=== PATIENT | female | born 1980 | race Caucasian/White ===

== ENCOUNTER → 2018-02-05 | Day surgery (SDC) | payer OTHER ==
[~2018-02-05] MED LIST: MIDAZOLAM HCL 2 MG/2 ML VIAL ONE; PANTOPRAZOLE 40 MG 10ML VIAL ONE; PROPOFOL IV EMULSION 10 MG/ML 50 ML VIAL ONE
--- OUTSIDE RECORDS SUMMARY | 2018-02-05 11:38 | XMS REPORT | Clinical Summary ---
Author Author [employer] [facility] [employer] Address Unknown Phone Unavailable Care Team Providers [employer] Counsel[employer] Name Role Phone Juan Monzon MD PCP Allergies Active Allergy Reactions Severity Noted Date Comments Minocycline 06/09/2017 Vancomycin (Bulk) Hives, Itching Current Medications Prescription Sig. Disp. Refills Start End Date Status Date cephalexin (KEFLEX) 500 TAKE 2 CAPSULES BY MOUTH 0 05/10/20 06/09/20 Discontin MG capsule TWICE DAILY FOR 10 DAYS 17 17 ued omeprazole (PriLOSEC) 40 Take 40 mg by mouth once 3 05/07/20 Discontin MG capsule daily. 17 17 ued amoxicillin (AMOXIL) 500 Take 500 mg by mouth 3 06/17/20 Discontin MG capsule (three) times a day. 17 ued cephalexin (KEFLEX) 250 Take 1 capsule (250 mg 28 capsule 0 06/18/20 06/26/20 Discontin MG capsule total) by mouth 4 (four) 17 17 ued times a day for 7 days. traMADol (ULTRAM) 50 mg Take 1 tablet (50 mg 30 tablet 0 06/18/20 Discontin tablet total) by mouth every 6 17 17 ued (six) hours as needed for moderate pain for up to 30 days. Active Problems Problem Noted Date Cardiac pacemaker in situ 06/26/2017 Overview: Proper device function, no changes PM site and LINQ site are both healing well Syncope 06/10/2017 Last Assessment & Plan: No syncope since PM implant AV heart block 06/10/2017 Last Assessment & Plan: S/p dual chamber permanent PM implant (06/17/17) Encounters Date Type Specialty Care Team Description 09/01/2017 Office Visit Cardiology Guerrero Garcia V., Syncope, unspecified syncope type (Primary Dx); AV heart block; Cardiac pacemaker in situ 06/26/2017 Office Visit Cardiology Batsheva Mackey, Syncope, unspecified SPEECH LANGUAGE SPECIALIST syncope type (Primary Dx); AV heart block; Cardiac pacemaker in situ 06/17/2017 [facility] Cardiology Guerrero Garcia V., Syncope, unspecified - Encounter MD syncope type 06/18/2017 06/17/2017 Anesthesia Procedural Cardiology Suki, Karan, SHOT HOLE SHOOTER Event 06/17/2017 Procedure Pass Procedural Cardiology 06/17/2017 Surgery Procedural Cardiology Guerrero Garcia V., Ep ppi implant insertion bi vent av seq [[id number] (CPT )] 06/16/2017 Lab Lab Guerrero Garcia V., Syncope, unspecified MD syncope type 06/16/2017 Hospital Procedural Cardiology Guerrero Garcia V., AV heart block Encounter MD 06/11/2017 Orders Only Cardiology Meenakshi Tomas MA Syncope, unspecified syncope type (Primary Dx) 06/11/2017 Orders Only Cardiology Meenakshi Tomas MA Syncope, unspecified syncope type (Primary Dx) 06/09/2017 Office Visit Cardiology Guerrero Garcia V., Syncope, unspecified MD syncope type (Primary Dx); AV heart block 05/23/2017 Hospital Procedural Cardiology Moisés Bhatti MD PhD Palpitations Encounter 05/23/2017 Ancillary Procedural Cardiology Moisés Bhatti MD PhD Palpitations Orders 04/23/2017 Hospital Procedural Cardiology Juan M Monzon MD Palpitations Encounter 04/23/2017 Ancillary Procedural Cardiology Juan M Monzon MD Palpitations Orders 03/27/2017 Ancillary Procedural Cardiology Juan M Monzon MD Palpitations Orders 03/23/2017 Hospital Procedural Cardiology Juan M Monzon MD Palpitations Encounter 02/24/2017 Ancillary Procedural Cardiology Juan M Monzon MD Heart palpitations Orders 02/21/2017 Hospital Procedural Cardiology Juan M Monzon MD Heart palpitations Encounter after 02/04/2017 Family History Medical History Relation Name Comments Hypertension Father Hypertension Mother Lupus Mother Relation Name Status Comments Father Mother Social History Tobacco Use Types Packs/Day Years Used Date Never Smoker Alcohol Use Drinks/Week oz/Week Comments Yes social Sex Assigned at Date Recorded Not on file Last Filed Vital Signs Vital Sign Reading Time Taken Blood Pressure 138/75 09/01/2017 2:31 PM FAMILY SPECIALIST Pulse 70 09/01/2017 2:31 PM FAMILY SPECIALIST Temperature 36.9 C (98.5 F) 06/18/2017 7:17 AM CDT Respiratory Rate 16 06/26/2017 9:09 AM CDT Oxygen Saturation 97% 06/18/2017 7:17 AM CDT Inhaled Oxygen - - Concentration Weight 74.8 kg (165 lb) 09/01/2017 2:31 PM FAMILY SPECIALIST Height 175.3 cm (5' 9") 09/01/2017 2:31 PM FAMILY SPECIALIST Body Mass Index 24.37 09/01/2017 2:31 PM FAMILY SPECIALIST Plan of Treatment Health Maintenance Due Date Last Done Comments CERVICAL CANCER SCREENING 2001 INFLUENZA VACCINE 04/22/2018 Implants Implanted Type Area Instant Print Operator Device Expiration Model / Identifier Date Serial / Lot Pacemaker 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 [id number] Leads or / Implanted: Qty: 1 on 06/17/2017 by Electrodes [id number] Guerrero Garcia MD or Jessica grant Lead, Bipolar Active Fixation Cardiac N/A: N/A [employer] [facility] 2018 [id number] / Atrial Steroid Eluting 45 Cm [employer] [id number] Capsure Fix Novus System - Leads or / [id number] - [id number] Electrodes [id number] Implanted: Qty: 1 on 06/17/2017 by Guerrero Rees MD Accessorie s Pacemaker Pacemaker Procedures Procedure Name Priority Date/Time Associated Diagnosis Comments CV PACEMAKER DEFIB ILR Routine 09/01/2017 INTERROGATION 12:00 AM FAMILY SPECIALIST EP LOOP RECORDER REMOVAL Routine 06/17/2017 Syncope, unspecified Results for this 8:13 PM CDT syncope type procedure are in the results section. EP PPI IMPLANT INSERTION Routine 06/17/2017 Syncope, unspecified Results for this BI VENT AV SEQ 8:13 PM CDT syncope type procedure are in the results section. CV LOOP RECORDER MONITOR Routine 05/23/2017 Palpitations EVAL <30DAYS 12:52 PM CDT CV LOOP RECORDER MONITOR Routine 04/23/2017 Palpitations EVAL <30DAYS 10:02 AM CDT CV LOOP RECORDER MONITOR Routine 03/27/2017 Palpitations EVAL <30DAYS 9:40 AM CDT CV LOOP RECORDER MONITOR Routine 02/24/2017 Heart palpitations EVAL <30DAYS 10:37 AM CDT after 02/04/2017 Results * Measles (rubeola) antibody IgG (01/28/2018 12:14 PM) Component Value Ref Range Measles (rubeola) Ab, IgG Positive (A)Comment: Positive: Indicates current Negative or past infection. Specimen Performing Laboratory Serum [facility] DEPARTMENT OF PATHOLOGY AND GENOMIC MEDICINE [address] [place] [address] * Rubella Ab IgG (01/28/2018 12:14 PM) Component Value Ref Range Rubella IgG antibody Positive (A) Non-reactive Specimen Performing Laboratory Blood [facility] [address] [place] [address] * Mumps virus antibody, IgG (01/28/2018 12:14 PM) Component Value Ref Range Mumps Ab, IgG Positive (A)Comment: Positive: Indicates current Negative or past infection. Specimen Performing Laboratory Serum [facility] DEPARTMENT OF PATHOLOGY AND GENOMIC MEDICINE [address] [place] [address] * ECG 12 lead (09/01/2017 2:35 PM) Only the most recent of 4 results within the time period is included. Component Value Ref Range Ventricular rate 67 Atrial rate 67 ID interval 148 QRSD interval 82 QT interval 390 QTC interval 412 P axis 1 79 QRS axis 1 83 T wave axis 20 EKG impression Normal sinus rhythm-Nonspecific ST and T wave abnormality-Abnormal ECG-In automated comparison with ECG of 26-JUN-2017 08:19,-No significant change was found- Specimen Performing Laboratory [facility] [address] [address] [place] [address] * CV pacemaker defib or ilr interrogation (09/01/2017) * Estimated GFR (06/18/2017 3:14 AM) Only the most recent of 3 results within the time period is included. Component Value Ref Range GFR Non Af Amer >90 mL/min/1.73 m2 GFR Af Amer >90 mL/min/1.73 m2 Comment: Chronic kidney disease: <60 mL/min/1.73m2 Kidney failure: <15 mL/min/1.73m2 The estimated GFR is calculated from the IDMS-traceable Modification of Diet in Renal Disease Equation. The accuracy of the calculation is poor when the creatinine is normal. Calculated values >90 mL/min/1.73m2 are not reported. This equation has not been validated in children (<18 years), women, the elderly (>70 years), or ethnic groups other than Caucasians and Americans. Specimen Performing Laboratory Plasma specimen [facility] DEPARTMENT OF PATHOLOGY AND GENOMIC MEDICINE [address] [place] [address] * Prothrombin time with INR (06/18/2017 3:14 AM) Only the most recent of 2 results within the time period is included. Component Value Ref Range Prothrombin time 13.7 12.0 - 15.0 sec INR 1.0 Comment: The International Normalized Ratio (INR) is a therapeutic monitoring tool for patients who are stable on oral anticoagulant therapy. An INR of 2.0-3.0 is suggested for deep vein thrombosis/pulmonary embolism. Specimen Performing Laboratory Blood [facility] DEPARTMENT OF PATHOLOGY AND GENOMIC MEDICINE [address] [place] [address] * CBC with platelet and differential (06/18/2017 3:14 AM) Only the most recent of 2 results within the time period is included. Component Value Ref Range WBC 6.29 4.50 - 11.00 k/uL RBC 4.32 4.20 - 5.50 m/uL HGB 12.9 12.0 - 16.0 g/dL HCT 38.1 37.0 - 47.0 % MCV 88.2 82.0 - 100.0 fL MCH 29.9 27.0 - 34.0 pg MCHC 33.9 31.0 - 37.0 g/dL RDW - SD 41.0 37.0 - 55.0 fL MPV 9.1 8.8 - 13.2 fL Platelet count 191 150 - 400 k/uL Nucleated RBC 0.00 /100 WBC Neutrophils 72.3 (H) 39.0 - 69.0 % Lymphocytes 16.7 (L) 25.0 - 45.0 % Monocytes 8.4 0.0 - 10.0 % Eosinophils 1.9 0.0 - 5.0 % Basophils 0.5 0.0 - 1.0 % Immature granulocytes 0.2Comment: "Immature granulocytes" 0.0 - 1.0 % (promyelocytes, myelocytes, metamyelocytes) Specimen Performing Laboratory Blood [facility] DEPARTMENT OF PATHOLOGY AND GENOMIC MEDICINE [address] [place] [address] * Basic metabolic panel (06/18/2017 3:14 AM) Component Value Ref Range Sodium 139 135 - 148 mEq/L Potassium 4.0 3.5 - 5.0 mEq/L Chloride 105 98 - 112 mEq/L CO2 23 (L) 24 - 31 mEq/L Anion gap 11 7 - 15 mEq/L Comment: Starting from December , anion gap calculation no longer incorporates potassium. Please note the change. BUN 8 6 - 20 mg/dL Creatinine 0.7 0.5 - 0.9 mg/dL Glucose 102 (H) 65 - 99 mg/dL Calcium 7.1 (L) 8.3 - 10.2 mg/dL Specimen Performing Laboratory Plasma specimen [facility] DEPARTMENT OF PATHOLOGY AND GENOMIC MEDICINE [address] [place] [address] * XR Chest 1 Vw Portable (06/17/2017 8:55 PM) Specimen Performing Laboratory [facility] [address] [place] [address] Narrative EXAMINATION:XR CHEST 1 VW PORTABLE CLINICAL HISTORY:Pneumothorax COMPARISON:None IMPRESSION: No consolidations, effusions, or pneumothorax. Cardiomediastinal silhouette is within normal limits. Left-sided cardiac device is identified. No acute osseous abnormalities. [facility]-[id number] Procedure Note Interface, Radiology Results Incoming - 06/17/2017 9:09 PM CDT EXAMINATION: XR CHEST 1 VW PORTABLE CLINICAL HISTORY: Pneumothorax COMPARISON: None IMPRESSION: No consolidations, effusions, or pneumothorax. Cardiomediastinal silhouette is within normal limits. Left-sided cardiac device is identified. No acute osseous abnormalities. [facility]-[id number] * Cv electrophysiology procedure (06/17/2017 8:13 PM) Specimen Performing Laboratory [facility] [address] [place] [address] [facility] ELECTROPHYSIOLOGY PROCEDURE NOTE DUAL CHAMBER PACEMAKER INDICATIONS Paroxysmal AV block PROCEDURE: Time out was completed with verification of the correct patient identity, procedure to be performed, procedure site and implanted equipment. The patient was brought to the electrophysiology laboratory at the [facility]. Intravenous prophylactic antibiotics were administered prior to the procedure. After the site of implantation was prepped and drapped in the usual sterile fashion and after adequate anesthesia was given, the skin was infiltrated with 1% lidocaine and 1% bupivicaine 50/50 mixture. The skin was incised with a #10 scalpel. Blunt and electrosurgical dissection was carried out to the level of the prepectoral fascia with careful attention paid to hemostasis. A pocket to house the pulse generator was formed below the pectoralis muscle with blunt and electrosurgical dissection. The pocket was copiously irrigated with antibiotic containing normal saline and subsequently observed. Once adequate hemostasis was confirmed within the pocket, venous access was obtained. The subclavian vein was accessed via Seldinger technique. Two J tip 0.035 inch guide wires were introduced and their course throught the venous system was confirmed by their presence under fluoroscopy in the inferior vena. RIGHT VENTRICULAR (HIS) LEAD: A 6 Vincentian peel away sheath was brought to the field and placed into the venous system via over the wire technique. The right ventricular lead was placed via this sheath into the His bundle location with excellent His capture and completely normal QRS.Adequate sensing and threshold parameters were obtained. The lead was attached via active fixation. There was no evidence of diaphragmatic stimulation at 10 V output. The peel away sheath was removed and the lead collar was advanced to the pectoral muscle and sutured with Ethibondsuture. Tug testing of this lead confirmed stability of the lead and the length of the lead's slack was assesed as optimal with fluoroscopy. RIGHT ATRIAL LEAD: A 6 Vincentian peel away sheath was brought to the field and placed into the venous system via over the wire technique. The right atrial lead was placed via this sheath into the right atrial appendage location. Adequate sensing and threshold parameters were obtained. The lead was attached via active fixation. There was no evidence of diaphragmatic stimulation at 10 V output. The peel away sheath was removed and the lead collar was advanced to the pectoral muscle and sutured with Ethibond suture. Tug testing of this lead confirmed stability of the lead and the length of the lead's slack was assesed as optimal with fluoroscopy. The lead tips for all leads were cleaned and dried thoroughly. The leads were attached to the appropriate ports on the pulse generator. Tug testing was perfomed on all connections. The device and leads were placed within the pocket such that the coiled redundant leads were posterior to the pulse generator. The pulse generator was then sutured inserted in the subpectoral pocket. The pocket was closed with 2 layers of continuous suture using 2-0 Vicryl. Dermabond was applied to the wound followed by a pressure dressing. CONCLUSIONS Successful dual chamber pacemaker implant. LINQ: the old scar was infiltrated with lidocaine and the linQ was extracted, the wound was closed with 4-0 vicryl. * Partial thromboplastin time, activated (06/16/2017 4:05 PM) Component Value Ref Range PTT 27.5 23.0 - 36.0 sec Comment: PTT therapeutic range for unfractionated heparin is 61.0-112.0 seconds which corresponds to Anti-Xa 0.3-0.7 U/ml. Specimen Performing Laboratory Blood [facility] DEPARTMENT OF PATHOLOGY AND GENOMIC MEDICINE [address] [place] [address] * Type and screen (06/16/2017 4:05 PM) Component Value Ref Range ABO grouping B Rh type POS Antibody screen (gel) NEG Specimen Performing Laboratory Blood [facility] DEPARTMENT OF PATHOLOGY AND GENOMIC MEDICINE [address] [place] [address] * Comprehensive metabolic panel (06/16/2017 4:05 PM) Component Value Ref Range Sodium 139 135 - 148 mEq/L Potassium 4.0 3.5 - 5.0 mEq/L Chloride 102 98 - 112 mEq/L CO2 26 24 - 31 mEq/L Anion gap 11 7 - 15 mEq/L Comment: Starting from December , anion gap calculation no longer incorporates potassium. Please note the change. BUN 10 6 - 20 mg/dL Creatinine 0.8 0.5 - 0.9 mg/dL Glucose 93 65 - 99 mg/dL Calcium 9.6 8.3 - 10.2 mg/dL Protein 7.7 6.3 - 8.3 g/dL Comment: 4.6-7.0 g/dL 1 week 4.4-7.6 g/dL 7 months-1year 5.1-7.3 g/dL 1-2 years 5.6-7.5 g/dL >3 years 6.0-8.0 g/dL 18-150 6.3-8.3 g/dL Albumin 4.0 3.5 - 5.0 g/dL A/G ratio 1.1 0.7 - 3.8 Alkaline phosphatase 68 35 - 104 U/L AST 21 10 - 35 U/L ALT 17 5 - 50 U/L Total bilirubin 0.6 0.0 - 1.2 mg/dL Specimen Performing Laboratory Plasma specimen [facility] DEPARTMENT OF PATHOLOGY AND GENOMIC MEDICINE [address] [place] [address] * Cardiac mri rv dysplasia eval w contrast (06/16/2017 3:55 PM) Specimen Performing Laboratory [facility] [address] [place] [address] [facility] CMR Report Name:BERNARDA MCCLELLAND :1980 Scan Date: 2017-06-16 14:43:45 Signed by Yasmany Hernandez M.D. (uid:34) 17:29:25. SUMMARY 1.Normal cardiac chamber sizes. NO intracardiac thrombus or mass. 2.Normal LV systolic function without regional wall motion abnormalities ( LVEF 67%). Normal RV systolic function without regional wall motion abnormalities (RVEF 58%). There are no major or minor 2010 Task Force imaging criteria* for arrhythmogenic right ventricular cardiomyopathy/dysplasia 3.NO myocardial infarction or scarring. 4.NO significant valvular abnormalities. 5.The thoracic aorta is of normal caliber without stenosis, aneurysm, or dissection. Normal pulmonary venous anatomy. 6. Other: Breast implants FINAL IMPRESSION: ESSENTIALLY NORMAL CMR EXAMINATION. CORE EXAM MEASUREMENTS --------- VOLUMETRIC ANALYSIS . . || | LV| Reference| RV| Reference | +------+-------+-------+ +-------+ + | EDV| ml| 156.5 |(119-185) | 184.5 |(117-189) | | ESV| ml|51.1 |(32-69) |76.7 |(32-82) | | CO | L/min |6.32 ||6.47 | | | MASS | g |92.4 |(90-148)| | | | SV | ml| 105.4 |(77-125)| 107.8 |(73-119)| | EF | % | 67.35 |(57-75) | 58.43 |(51-75) | '------+-------+-------+ +-------+ ' HEART RATE:60 LV DIMENSIONS WALL THICKNESS - ANTEROSEPTAL:0.4 cm WALL THICKNESS - INFEROLATERAL:0.6 cm LV JAIME:4.8 cm LV ESD:3.1 cm LA DIMENSIONS (LV SYSTOLE) DIAMETER:2.9 cm AREA - 2 CHAMBER:21 cm^2 LENGTH - 2 CHAMBER:5.3 cm AREA - 4 CHAMBER:22 cm^2 LENGTH - 4 CHAMBER:5.4 cm VOLUME:74.09 ml AORTIC ROOT DIMENSIONS DIAMETER - ANNULUS:2.4 cm DIAMETER - SINUS OF VALSALVA:3 cm DIAMETER - SINOTUBULAR JUNCTION:2.8 cm AORTIC ROOT SIZE:Normal CONDENSED SUMMARY --------- LV:Normal Wall Thickness. Cavity Size is Normal. No Mass/Thrombus. RV:Normal Wall Thickness. Contractility is Normal. Cavity Size is Normal. No Mass/Thrombus. No Pacemaker/Defibrillator Wire. IVS:Normal Interventricular Septum. LA:Cavity Size is Normal. No Mass/Thrombus. IAS:Normal Interatrial Septum. RA:Cavity Size is Normal. No Mass/Thrombus. No Additional Findings. No Pacemaker/Defibrillator Wire. PER:Normal Pericardium. No Effusion. No Diastolic Collapse. PE:No Pleural Effusion. AV:Trileaflet. No Aortic Regurgitation. No Aortic Stenosis. TV:Normal Leaflets. No Tricuspid Regurgitation. No Tricuspid Stenosis. MV:Normal Leaflets. No Mitral Regurgitation. No Mitral Stenosis. PV:Normal Leaflets. No Pulmonic Regurgitation. No Pulmonic Stenosis. 17 SEGMENT --------- . . | Segments | Wall Motion| Hyperenhancement | Stress Perfusion | Interpretation | + + + + +----- + | Base Anterior| Normal/Hyper | None | || | Base Anteroseptal| Normal/Hyper | None | || | Base Inferoseptal| Normal/Hyper | None | || | Base Inferior| Normal/Hyper | None | || | Base Inferolateral | Normal/Hyper | None | || | Base Anterolateral | Normal/Hyper | None | || | Mid Anterior | Normal/Hyper | None | || | Mid Anteroseptal | Normal/Hyper | None | || | Mid Inferoseptal | Normal/Hyper | None | || | Mid Inferior | Normal/Hyper | None | || | Mid Inferolateral| Normal/Hyper | None | || | Mid Anterolateral| Normal/Hyper | None | || | Apical Anterior| Normal/Hyper | None | || | Apical Septal| Normal/Hyper | None | || | Apical Inferior| Normal/Hyper | None | || | Apical Lateral | Normal/Hyper | None | || | [place] | Normal/Hyper | None ||| + + + + +----- + | RV Segments| Wall Motion| Hyperenhancement | Stress Perfusion | Interpretation | + + + + +----- + | RV Basal Anterior| Normal/Hyper | None | || | RV Basal Inferior| Normal/Hyper | None | || | RV Mid | Normal/Hyper | None | || | RV Apical| Normal/Hyper | None | || ' + + + +----- ' FINDINGS INFARCT/SCAR SIZE:0 % VASCULAR SCAN INFO GENERAL --------- SEDATION SEDATION USED?:No CONTRAST AGENT TYPE:Dotarem LOT NUMBER:[id number] EXPIRATION DATE:2019-05-23 00:00:00 VOLUME ADMINISTERED:23 ml DOSAGE FOR 0.5M:0.15 mmol/kg SERUM CREATININE:0.8 sCr GFR:86.26 ml/min/1.73m^2 FEMALE:Yes OR BLACK:No CREATININE DATE:2017-06-16 00:00:00 LAB RESULT HEMATOCRIT LEVEL:42 % HEMATOCRIT DATE:2017-06-16 00:00:00 VITALS HEIGHT:69 in HEIGHT:175.26 cm BODY WEIGHT:170 lbs BODY WEIGHT:77.11 kgs BSA::1.93 m^2 SYSTOLIC BP:118 mmHg DIASTOLIC BP:78 mmHg HEART RATE:86 BPM HEART RHYTHM:Sinus Rhythm PULSE SEQUENCE PULSE SEQUENCES:Single-Shot SSFP, IR GRE - Segmented, IR GRE - Single Shot, IR SSFP - Single Shot, Single Shot BB SADIQ, SSFP Cine, Phase Contrast Velocity Mapping, 3D MRA w and w/o contrast SETUP TYPE:Clinical INPATIENT:No LOCATION:[facility] INCOMPLETE SCAN:No REASON(S) FOR SCAN:RV Dysplasia Evaluation REFERRING PHYSICIAN:Guerrero Garcia MD ATTENDING PHYSICIAN:Yasmany Hernandez MD TECHNICIANS:Jaden Ramsay, RT ASSISTANTS:1) Cristine Duong 2) Divya RALPH 3) Leo Mcdaniels --------- Patient Account [id number] CPT Codes 85869, [ , ]12585, [ , ]68898 ICD10 Codes D86.9, [ , ]R93.1, [ , ]I45.89 Procedure Note Interface, Radiology Results In 06/16/2017 5:29 PM CDT [facility] CMR Report Name: BERNARDA MCCLELLAND: 1980 Scan Date: 2017-06-16 14:43:45 Signed by Yasmany Hernandez M.D. (uid:34) 17:29:25. SUMMARY 1. Normal cardiac chamber sizes. NO intracardiac thrombus or mass. 2. Normal LV systolic function without regional wall motion abnormalities ( LVEF 67%). Normal RV systolic function without regional wall motion abnormalities (RVEF 58%). There are no major or minor 2010 Task Force imaging criteria* for arrhythmogenic right ventricular cardiomyopathy/dysplasia 3. NO myocardial infarction or scarring. 4. NO significant valvular abnormalities. 5. The thoracic aorta is of normal caliber without stenosis, aneurysm, or dissection. Normal pulmonary venous anatomy. 6. Other: Breast implants FINAL IMPRESSION: ESSENTIALLY NORMAL CMR EXAMINATION. CORE EXAM MEASUREMENTS --------- VOLUMETRIC ANALYSIS . . | | | LV | Reference | RV | Reference | +------+-------+-------+ +-------+ + | EDV | ml | 156.5 | (119-185) | 184.5 | (117-189) | | ESV | ml | 51.1 | (32-69) | 76.7 | (32-82) | | CO | L/min | 6.32 | | 6.47 | | | MASS | g | 92.4 | (90-148) | | | | SV | ml | 105.4 | (77-125) | 107.8 | (73-119) | | EF | % | 67.35 | (57-75) | 58.43 | (51-75) | '------+-------+-------+ +-------+ ' HEART RATE: 60 LV DIMENSIONS WALL THICKNESS - ANTEROSEPTAL: 0.4 cm WALL THICKNESS - INFEROLATERAL: 0.6 cm LV JAIME: 4.8 cm LV ESD: 3.1 cm LA DIMENSIONS (LV SYSTOLE) DIAMETER: 2.9 cm AREA - 2 CHAMBER: 21 cm^2 LENGTH - 2 CHAMBER: 5.3 cm AREA - 4 CHAMBER: 22 cm^2 LENGTH - 4 CHAMBER: 5.4 cm VOLUME: 74.09 ml AORTIC ROOT DIMENSIONS DIAMETER - ANNULUS: 2.4 cm DIAMETER - SINUS OF VALSALVA: 3 cm DIAMETER - SINOTUBULAR JUNCTION: 2.8 cm AORTIC ROOT SIZE: Normal CONDENSED SUMMARY --------- LV:Normal Wall Thickness. Cavity Size is Normal. No Mass/Thrombus. RV:Normal Wall Thickness. Contractility is Normal. Cavity Size is Normal. No Mass/Thrombus. No Pacemaker/Defibrillator Wire. IVS:Normal Interventricular Septum. LA:Cavity Size is Normal. No Mass/Thrombus. IAS:Normal Interatrial Septum. RA:Cavity Size is Normal. No Mass/Thrombus. No Additional Findings. No Pacemaker/Defibrillator Wire. PER:Normal Pericardium. No Effusion. No Diastolic Collapse. PE:No Pleural Effusion. AV:Trileaflet. No Aortic Regurgitation. No Aortic Stenosis. TV:Normal Leaflets. No Tricuspid Regurgitation. No Tricuspid Stenosis. MV:Normal Leaflets. No Mitral Regurgitation. No Mitral Stenosis. PV:Normal Leaflets. No Pulmonic Regurgitation. No Pulmonic Stenosis. 17 SEGMENT --------- . . | Segments | Wall Motion | Hyperenhancement | Stress Perfusion | Interpretation | + + + + +---- + | Base Anterior | Normal/Hyper | None | | | | Base Anteroseptal | Normal/Hyper | None | | | | Base Inferoseptal | Normal/Hyper | None | | | | Base Inferior | Normal/Hyper | None | | | | Base Inferolateral | Normal/Hyper | None | | | | Base Anterolateral | Normal/Hyper | None | | | | Mid Anterior | Normal/Hyper | None | | | | Mid Anteroseptal | Normal/Hyper | None | | | | Mid Inferoseptal | Normal/Hyper | None | | | | Mid Inferior | Normal/Hyper | None | | | | Mid Inferolateral | Normal/Hyper | None | | | | Mid Anterolateral | Normal/Hyper | None | | | | Apical Anterior | Normal/Hyper | None | | | | Apical Septal | Normal/Hyper | None | | | | Apical Inferior | Normal/Hyper | None | | | | Apical Lateral | Normal/Hyper | None | | | | [place] | Normal/Hyper | None | | | + + + + +---- + | RV Segments | Wall Motion | Hyperenhancement | Stress Perfusion | Interpretation | + + + + +---- + | RV Basal Anterior | Normal/Hyper | None | | | | RV Basal Inferior | Normal/Hyper | None | | | | RV Mid | Normal/Hyper | None | | | | RV Apical | Normal/Hyper | None | | | ' + + + +----- ' FINDINGS INFARCT/SCAR SIZE: 0 % VASCULAR SCAN INFO GENERAL --------- SEDATION SEDATION USED?: No 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 AGENT 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: [employer] LOT NUMBER: [id number] EXPIRATION DATE: 2019-05-23 00:00:00 VOLUME ADMINISTERED: 23 ml DOSAGE FOR 0.5M: 0.15 mmol/kg SERUM CREATININE: 0.8 sCr GFR: 86.26 ml/min/1.73m^2 FEMALE: Yes OR BLACK: No CREATININE DATE: 2017-06-16 00:00:00 LAB RESULT HEMATOCRIT LEVEL: 42 % HEMATOCRIT DATE: 2017-06-16 00:00:00 VITALS HEIGHT: 69 in HEIGHT: 175.26 cm BODY WEIGHT: 170 lbs BODY WEIGHT: 77.11 kgs BSA:: 1.93 m^2 SYSTOLIC BP: 118 mmHg DIASTOLIC BP: 78 mmHg HEART RATE: 86 BPM HEART RHYTHM: Sinus Rhythm PULSE SEQUENCE PULSE SEQUENCES: Single-Shot SSFP, IR GRE - Segmented, IR GRE - Single Shot, IR SSFP - Single Shot, Single Shot BB SADIQ, SSFP Cine, Phase Contrast Velocity Mapping, 3D MRA w and w/o contrast SETUP TYPE: Clinical INPATIENT: No LOCATION: [facility] INCOMPLETE SCAN: No REASON(S) FOR SCAN: RV Dysplasia Evaluation REFERRING PHYSICIAN: Guerrero Garcia MD ATTENDING PHYSICIAN: Yasmany Hernandez MD TECHNICIANS: Jaden Ramsay, RT ASSISTANTS: 1) Cristine Duong 2) Divya RALPH 3) Leo Mcdaniels --------- Patient Account [id number] CPT Codes 70347, [ , ]39378, [ , ]26124 ICD10 Codes D86.9, [ , ]R93.1, [ , ]I45.89 * POC hematocrit (06/16/2017 2:30 PM) Component Value Ref Range POC hematocrit 42 37 - 47 % Specimen Performing Laboratory Blood [facility] DEPARTMENT OF PATHOLOGY AND GENOMIC MEDICINE [address] [place] [id number] * Creatinine level (06/16/2017 2:30 PM) Component Value Ref Range Creatinine 0.8Comment: Testing performed on the ISTAT 0.5 - 0.9 mg/dL instrument by DIMA Gonzalez [id number] Specimen Performing Laboratory Plasma specimen [facility] DEPARTMENT OF PATHOLOGY AND GENOMIC MEDICINE [address] [place] [id number] * Cv pacemaker defib or ilr interrogation (05/23/2017 12:52 PM) Specimen Performing Laboratory [facility] [id number] [place] [address] * Cv pacemaker defib or ilr interrogation (04/23/2017 10:02 AM) Specimen Performing Laboratory [address] [id number] [place] [address] * Cv pacemaker defib or ilr interrogation (03/27/2017 9:40 AM) Specimen Performing Laboratory [address] [id number] [place] [address] * Cv pacemaker defib or ilr interrogation (02/24/2017 10:37 AM) Specimen Performing Laboratory [address] [id number] [place] [address] after 02/04/2017 Insurance Payer Benefit Subscriber ID Type Phone Address Plan / Group [facility] xxxxxxxxx HMO/PPO THCARE CHOICE/CHO ICE + BERNARDA MCCLELLAND Self 1980 Home: [address] [place] [address]
--- NOTE | 2018-02-05 14:23 | Operative Report ---
DATE OF PROCEDURE: February 05, 2018 REFERRING PHYSICIAN: Dr. Gregory Lopez. PROCEDURE PERFORMED: Esophagogastroduodenoscopy with biopsies and esophageal dilatation. INDICATIONS FOR ESOPHAGOGASTRODUODENOSCOPY: Dysphagia to solids, nausea and vomiting. MEDICATION: Patient was done under MAC. Please see anesthesiologist's note. PROCEDURE: With the patient in the left lateral decubitus position, the flexible fiberoptic Olympus gastroscope was introduced into the esophagus under direct visualization without any difficulty. Some longitudinal furrows were noted in the esophagus that were compatible with eosinophilic esophagitis. There was an approximately 4 mm nodule noted at the GE junction that was biopsied. The esophagus was dilated to size 52-Kittitian Perez. The scope was then advanced with ease into the stomach, and the mucosa overlying the antrum and the body revealed some diffuse erythema and moderate edema, and biopsies were obtained and sent to stain for H. pylori. Pylorus appeared to be of normal contour and shape, was intubated with ease, and the scope was advanced all the way to the 2nd portion of the duodenum. The scope was then withdrawn slowly. Mucosa overlying the proximal 2nd portion and the duodenal bulb appeared to be within normal limits. The scope was then withdrawn back into the stomach and retroflexed, and the mucosa overlying the fundus and the cardia appeared to be within normal limits. The scope was then straightened out. The stomach was decompressed. The scope was subsequently withdrawn. Patient tolerated the procedure well. IMPRESSION: 1. Rule out eosinophilic esophagitis. 2. Esophagus dilated to size 52-Kittitian Perez. 3. Nodule gastroesophageal junction biopsied. 4. Gastritis biopsied. Biopsies sent to stain for H. pylori. PLAN: Follow up histology. Initiate Protonix 40 mg 1 p.o. q.a.m. a.c. Job#: [id number] EV cc:GREGORY LOPEZ MD
== END | disposition home or self-care (01) ==
LOC: OR 11:35
PROVIDERS: ATTEND Internal Medicine Gastroenterology
DX: K20.9 Esophagitis, unspecified (principal); K29.70 Gastritis, unspecified, without bleeding; K22.8 Other specified diseases of esophagus; K21.9 Gastro-esophageal reflux disease without esophagitis; F41.9 Anxiety disorder, unspecified; Z95.0 Presence of cardiac pacemaker
CPT/HCPCS: 43239; 43450; 81025; J2250

== ENCOUNTER → 2020-12-01 | Day surgery (SDC) | payer OTHER ==
[2020-11-29 09:33] LABS: BASOPHILS % 0.6 % (0.0-1.0); EOSINOPHILS # (AUTO) 0.2 (0.0-0.4); EOSINOPHILS % 3.2 % (0.0-6.0); HEMATOCRIT 41.3 % (34.2-44.1); HEMOGLOBIN 13.9 g/dL (12.0-16.0); LYMPHOCYTES # (AUTO) 1.2 (1.0-3.2); LYMPHOCYTES % 19.1 % (18.0-39.1); MEAN CORPUSCULAR HEMOGLOBIN 29.4 pg (28-32); MEAN CORPUSCULAR HGB CONC 33.7 g/dL (31-35); MEAN CORPUSCULAR VOLUME 87.3 fL (81-99); MONOCYTES # (AUTO) 0.5 (0.2-0.8); MONOCYTES % 7.3 % (4.4-11.3); NEUTROPHILS # (AUTO) 4.3 (2.1-6.9); NEUTROPHILS % 69.6 % (38.7-80.0); PLATELET COUNT 235 x10e3/uL (140-360); RED BLOOD COUNT 4.73 x10e6/uL (3.6-5.1); RED CELL DISTRIBUTION WIDTH 12.8 % (11.7-14.4)
[~2020-12-01] MED LIST changes: +ATIVAN1 MG PO; +FENTANYL CITRATE/PF 100MCG/2 ML INJ ONE; +METOCLOPRAMIDE HCL 10 MG/2ML VIAL ONE; +PROPOFOL IV EMULSION 10 MG/ML 20 ML VIAL ONE; -PROPOFOL IV EMULSION 10 MG/ML 50 ML VIAL ONE
[2020-12-01 09:30] VITALS: BP 119/80
== END | disposition home or self-care (01) ==
LOC: ENDO 05:56
PROVIDERS: ATTEND Internal Medicine Gastroenterology
DX: K22.2 Esophageal obstruction (principal); K29.50 Unspecified chronic gastritis without bleeding; K29.60 Other gastritis without bleeding; K20.0 Eosinophilic esophagitis; K21.00 Gastro-esophageal reflux disease with esophagitis, without bleeding; K44.9 Diaphragmatic hernia without obstruction or gangrene; R03.0 Elevated blood-pressure reading, without diagnosis of hypertension; F41.9 Anxiety disorder, unspecified; Z88.1 Allergy status to other antibiotic agents; Z01.810 Encounter for preprocedural cardiovascular examination; Z01.812 Encounter for preprocedural laboratory examination; Z20.822 Contact with and (suspected) exposure to COVID-19
CPT/HCPCS: 36415; 43239; 43450; 81025; 85025; 93005; C9113; J2250; J2704; J2765; J3010; U0002

== ENCOUNTER → 2022-02-20 | Outpatient (CLI) | payer OTHER ==
[~2022-02-20] MED LIST changes: -FENTANYL CITRATE/PF 100MCG/2 ML INJ ONE; -METOCLOPRAMIDE HCL 10 MG/2ML VIAL ONE; -MIDAZOLAM HCL 2 MG/2 ML VIAL ONE; -PANTOPRAZOLE 40 MG 10ML VIAL ONE; -PROPOFOL IV EMULSION 10 MG/ML 20 ML VIAL ONE
== END ==
LOC: RAD 08:47
PROVIDERS: ATTEND Internal Medicine
DX: M54.50 Low back pain, unspecified (principal)
CPT/HCPCS: 72100; 72220

== ENCOUNTER → 2022-03-26 | Outpatient (CLI) | payer OTHER ==
[~2022-03-26] MED LIST changes: +IOPAMIDOL 370 MG/ML 100 ML INFUS..BTL INJ ONE
== END | disposition home or self-care (01) ==
LOC: CT 12:48
PROVIDERS: ATTEND Internal Medicine
DX: R63.4 Abnormal weight loss (principal); R10.31 Right lower quadrant pain; K42.9 Umbilical hernia without obstruction or gangrene
CPT/HCPCS: 74177; Q9967

== ENCOUNTER → 2023-03-22 | Day surgery (SDC) | payer OTHER ==
[~2023-03-22] MED LIST changes: +FENTANYL CITRATE/PF 100MCG/2 ML INJ ONE; -IOPAMIDOL 370 MG/ML 100 ML INFUS..BTL INJ ONE; +LACTATED RINGER'S 1,000 ML ONE; +LIDOCAINE HCL 2% LOCAL INJ 5 ML SDV VIAL INJ ONE; +PROPOFOL IV EMULSION 10 MG/ML 20 ML VIAL ONE
[2023-03-22 07:44] VITALS: TEMP 97.7
[2023-03-22 08:04] VITALS: BP 134/81; PULSE 72; RESP 18; O2SAT 99
== END | disposition home or self-care (01) ==
LOC: ENDO 06:19
PROVIDERS: ATTEND Internal Medicine Gastroenterology
DX: K22.2 Esophageal obstruction (principal); K20.0 Eosinophilic esophagitis; K29.70 Gastritis, unspecified, without bleeding; K44.9 Diaphragmatic hernia without obstruction or gangrene; K21.9 Gastro-esophageal reflux disease without esophagitis; Z71.3 Dietary counseling and surveillance; R06.83 Snoring; R03.0 Elevated blood-pressure reading, without diagnosis of hypertension; Z71.89 Other specified counseling; I44.1 Atrioventricular block, second degree; M35.00 Sjogren syndrome, unspecified; F41.9 Anxiety disorder, unspecified; Z88.1 Allergy status to other antibiotic agents; Z79.899 Other long term (current) drug therapy; Z95.0 Presence of cardiac pacemaker
CPT/HCPCS: 43235; 43450; 81025; C9113; J2001; J2704; J3010; J7121; 43239

== ENCOUNTER 2023-03-24 17:31 | Emergency (ER) | payer OTHER ==
[~2023-03-24] VITALS: Ht 175.3 cm; Wt 74.8 kg
[~2023-03-24 17:31] MED LIST changes: -FENTANYL CITRATE/PF 100MCG/2 ML INJ ONE; -LACTATED RINGER'S 1,000 ML ONE; -LIDOCAINE HCL 2% LOCAL INJ 5 ML SDV VIAL INJ ONE; -PROPOFOL IV EMULSION 10 MG/ML 20 ML VIAL ONE
[2023-03-24] MEDS ORDERED: FAMOTIDINE 20 MG/2 ML VIAL IV STA (18:28)
[2023-03-24] MEDS ORDERED: FAMOTIDINE 20 MG/2 ML VIAL IV ONE (18:35)
[2023-03-24] MEDS ORDERED: IOPAMIDOL 370 MG/ML 100 ML INFUS..BTL INJ ONE (18:38)
[2023-03-24] MEDS ORDERED: DIATRIZOATE MEGL/DIATRIZOA SOD 30 ML BTL PO ONE (18:38)
[2023-03-24] MEDS ORDERED: MAGNESIUM/ALUMINUM/SIMETHICONE 30 ML UDC ONE (21:05)
[2023-03-24] MEDS ORDERED: BELLADONNA ALK/PHENOBARBITAL 5 ML UDC ONE (21:06)
[2023-03-24] MEDS ORDERED: LIDOCAINE VISC 2% SOLN 15 ML UDC ONE (21:06)
[2023-03-24 21:20] VITALS: BP 139/86; PULSE 72; RESP 18; TEMP 98; O2SAT 97
== END 2023-03-24 21:20 | disposition home or self-care (01) ==
LOC: FSED 17:36
DX: K21.00 Gastro-esophageal reflux disease with esophagitis, without bleeding (principal); M35.00 Sjogren syndrome, unspecified; I47.1 Supraventricular tachycardia; T85.898A Other specified complication of other internal prosthetic devices, implants and grafts, initial encounter; Y82.8 Other medical devices associated with adverse incidents; Y92.9 Unspecified place or not applicable; K22.2 Esophageal obstruction; K21.9 Gastro-esophageal reflux disease without esophagitis; Z95.810 Presence of automatic (implantable) cardiac defibrillator
CPT/HCPCS: 71260; 74177; 80053; 81025; 85025; 96374; 99283; Q9963; Q9967

== ENCOUNTER 2024-05-20 17:06 | Emergency (ER) | payer OTHER ==
[~2024-05-20] VITALS: Ht 175.3 cm; Wt 79.5 kg
[2024-05-20 17:37] VITALS: PULSE 87; RESP 16; TEMP 98.4; O2SAT 99
== END 2024-05-20 17:52 | disposition home or self-care (01) ==
LOC: FSED 17:26
DX: S89.82XA Other specified injuries of left lower leg, initial encounter (principal); X50.9XXA Other and unspecified overexertion or strenuous movements or postures, initial encounter; Y92.89 Other specified places as the place of occurrence of the external cause; K21.9 Gastro-esophageal reflux disease without esophagitis; F41.9 Anxiety disorder, unspecified; M35.00 Sjogren syndrome, unspecified; Z95.810 Presence of automatic (implantable) cardiac defibrillator
CPT/HCPCS: 99283

== ENCOUNTER → 2024-09-06 | Day surgery (SDC) | payer OTHER ==
[~2024-09-06] MED LIST changes: +AMBIEN10 MG PO; +FENTANYL CITRATE/PF 100MCG/2 ML INJ ONE; +HYOSCYAMINE SULFATE 0.5 MG/ML INJ ONE; +LIDOCAINE HCL 2% LOCAL INJ 5 ML SDV VIAL INJ ONE; +MELOXICAM15 MG PO; +MIDAZOLAM HCL 2 MG/2 ML VIAL ONE; +PROPOFOL IV EMULSION 10 MG/ML 20 ML VIAL ONE; +TIZANIDINE HCL4 M1 PO
[2024-09-06] MEDS: LACTATED RINGER'S 1,000 ML ONE (07:00)
[2024-09-06 10:05] VITALS: BP 126/86; PULSE 78; RESP 17; O2SAT 97
[2024-09-06 13:24] LABS: CDIFF AG QUIK CHEK NEGATIVE (NEGATIVE); CDIFF TOX QUIK CHEK NEGATIVE (NEGATIVE)
[2024-09-07 07:27] LABS: C-REACTIVE PROTEIN <1 mg/L (0-10)
== END | disposition home or self-care (01) ==
LOC: OR 06:31
PROVIDERS: ATTEND Internal Medicine Gastroenterology
DX: K29.70 Gastritis, unspecified, without bleeding (principal); K22.2 Esophageal obstruction; K20.0 Eosinophilic esophagitis; K44.9 Diaphragmatic hernia without obstruction or gangrene; K59.00 Constipation, unspecified; K62.89 Other specified diseases of anus and rectum; K64.8 Other hemorrhoids; M54.9 Dorsalgia, unspecified; Z88.1 Allergy status to other antibiotic agents; Z79.1 Long term (current) use of non-steroidal anti-inflammatories (NSAID); Z79.899 Other long term (current) drug therapy; Z95.0 Presence of cardiac pacemaker
CPT/HCPCS: 43239; 43450; 45380; 81025; 82784; 83516; 83630; 83993; 86140; 86256; 87045; 87177; 87324; 87328; 87449; J1980; J2003; J2250; J2470; J2704; J3010; J7121; 45378